=== PATIENT | male | born 1985 | race African-American/Black ===

== ENCOUNTER 2020-09-03 06:50 | Emergency (ER) | payer OTHER ==
[~2020-09-03] VITALS: Ht 180.3 cm; Wt 110.4 kg
[2020-09-03] MEDS ORDERED: ACETAMINOPHEN 500 MG TAB PO ONE (07:35)
--- NOTE | 2020-09-03 07:51 | REPVR ---
PROCEDURE INFORMATION: Exam: CT Head Without Contrast Exam date and time: 09/03/2020 7:41 AM Age: 35 years old Clinical indication: Injury or trauma; Fall; Blunt trauma (contusions or hematomas); Additional info: Post traumatic headaches for 1 month TECHNIQUE: Imaging protocol: Computed tomography of the head without contrast. Radiation optimization: All CT scans at this facility use at least one of these dose optimization techniques: automated exposure control; mA and/or kV adjustment per patient size (includes targeted exams where dose is matched to clinical indication); or iterative reconstruction. COMPARISON: No relevant prior studies available. FINDINGS: Brain: The cortical/white matter interfaces are preserved throughout the brain. There is no evidence of intracranial hemorrhage. There is prominent dural calcification along the interhemispheric fissure. Cerebral ventricles: A cavum vergae and cavum septum pellucidum are incidentally noted. There is no significant enlargement of the ventricles. Bones/joints: No acute fractures of the skull are identified. Paranasal sinuses: The visualized paranasal sinuses are clear. Mastoid air cells: The visualized mastoid air cells are clear. Soft tissues: The soft tissues appear unremarkable. IMPRESSION: No evidence of acute intracranial injury. Electronically signed by: Celina Guadarrama On 09/03/2020 07:51:35 AM
[2020-09-03] MEDS ORDERED: IBUP-1022 PO (08:02)
[2020-09-03] MEDS ORDERED: AMIT25TA17 PO (08:02)
[2020-09-03 08:20] VITALS: BP 135/79
== END 2020-09-03 08:32 | disposition home or self-care (01) ==
LOC: M ED 06:50
DX: G44.309 Post-traumatic headache, unspecified, not intractable (principal)

== ENCOUNTER 2022-04-01 07:35 | Emergency (ER) | payer OTHER ==
[~2022-04-01] VITALS: Ht 180.3 cm; Wt 111.8 kg
[~2022-04-01 07:35] MED LIST: AMIT25TA17 PO; IBUP-1022 PO
[2022-04-01 07:36] VITALS: BP 145/80
[2022-04-01] MEDS ORDERED: BENZ200C70 PO (11:38)
== END 2022-04-01 11:49 | disposition home or self-care (01) ==
LOC: M ED 07:35
DX: U07.1 COVID-19 (principal); Z79.899 Other long term (current) drug therapy; Z86.69 Personal history of other diseases of the nervous system and sense organs; Z98.890 Other specified postprocedural states